=== PATIENT | female | born 1975 | race Caucasian/White ===

== ENCOUNTER 2017-07-18 00:55 | Inpatient (IN) | payer OTHER ==
--- NOTE | 2017-07-18 01:38 | PDOC ---
History of Present Illness - General History Source: Patient Exam Limitations: No Limitations - History of Present Illness Initial Comments: 07/18/17 01:44 The patient is a 42 year old female, with no significant past medical history who presents to the emergency department with worsening abdominal pain since this afternoon. Patient reports last meal this afternoon. Patient returned home and reported sudden onset of pain. Patient reports associated nausea, vomiting , dizziness however denies any fever or chills. Patient denies any diarrhea, constipation, melena, hematochezia. LMP: 2 weeks ago. <Jeannine Machado - Last Filed: 07/18/17 01:44> <Franc Godoy - Last Filed: 07/18/17 04:08> - General Chief Complaint: Pain Stated Complaint: VOMITING,DIZZINESS, PAIN Time Seen by Provider: 07/18/17 01:36 Past History <Jeannine Machado - Last Filed: 07/18/17 01:44> - Suicide/Smoking/Psychosocial Hx Smoking History: Never smoked Have you smoked in the past 12 months: No Information on smoking cessation initiated: No Hx Alcohol Use: No Drug/Substance Use Hx: No Substance Use Type: None <Franc Godoy - Last Filed: 07/18/17 04:08> - Past Medical History Allergies/Adverse Reactions: Allergies Allergy/AdvReac Type Severity Reaction Status Date / Time No Known Allergies Allergy Verified 07/18/17 01:25 Home Medications: Ambulatory Orders NK [No Known Home Medication] 07/18/17 Review of Systems - Review of Systems Able to Perform ROS?: Yes Comments:: 07/18/17 01:44 CONSTITUTIONAL: Absent: fever, chills, diaphoresis, generalized weakness, malaise, loss of appetite HEENT: Absent: rhinorrhea, nasal congestion, throat pain, throat swelling, difficulty swallowing, mouth swelling, ear pain, eye pain, visual Changes CARDIOVASCULAR: Absent: chest pain, syncope, palpitations, irregular heart rate, lightheadedness , peripheral edema RESPIRATORY: Absent: cough, shortness of breath, dyspnea with exertion, orthopnea, wheezing, stridor, hemoptysis GASTROINTESTINAL: +abdominal pain, abdominal distension, nausea, vomiting Absent: diarrhea, constipation, melena, hematochezia GENITOURINARY: Absent: dysuria, frequency, urgency, hesitancy, hematuria, flank pain, genital pain MUSCULOSKELETAL: Absent: myalgia, arthralgia, joint swelling SKIN: Absent: rash, itching, pallor HEMATOLOGIC/IMMUNOLOGIC: Absent: easy bleeding, easy bruising, lymphadenopathy, frequent infections ENDOCRINE: Absent: unexplained weight gain, unexplained weight loss, heat intolerance, cold intolerance NEUROLOGIC: Absent: headache, focal weakness or paresthesias, dizziness, unsteady gait, seizure, mental status changes, bladder or bowel incontinence PSYCHIATRIC: Absent: anxiety, depression, suicidal or homicidal ideation, hallucinations. <Jeannine Machado - Last Filed: 07/18/17 01:44> *Physical Exam - Vital Signs Last Vital Signs Temp Pulse Resp BP Pulse Ox 98.7 F 71 18 135/73 100 07/18/17 01:24 07/18/17 01:24 07/18/17 01:24 07/18/17 01:24 07/18/17 01:24 - Physical Exam Comments: 07/18/17 01:44 GENERAL: Well developed, well nourished. Awake and alert. In no acute distress. HEENT: Normocephalic, atraumatic. PERRLA, EOMI. No conjunctival pallor. Sclerae are non -icteric. Moist mucous membranes. Oropharynx is clear. NECK: Supple. Full ROM. No JVD. Carotid pulses 2+ and symmetric, without bruits. No thyromegaly. No lymphadenopathy. CARDIOVASCULAR: Regular rate and rhythm. No murmurs, rubs, or gallops. Distal pulses are 2+ and symmetric. PULMONARY: No evidence of respiratory distress. Lungs clear to auscultation bilaterally. No wheezing, rales or rhonchi. ABDOMINAL: +RUQ tenderness. + [place] sign. Non-distended. No rebound or guarding. No organomegaly. Normoactive bowel sounds. MUSCULOSKELETAL Normal range of motion at all joints. No bony deformities or tenderness. No CVA tenderness. EXTREMITIES: No cyanosis. No clubbing. No edema. No calf tenderness. SKIN: Warm and dry. Normal capillary refill. No rashes. No jaundice. NEUROLOGICAL: Alert, awake, appropriate. Cranial nerves 2-12 intact. No deficits to light touch and temperature in face, upper extremities and lower extremities. No motor deficits in the in face, upper extremities and lower extremities. Normoreflexic in the upper and lower extremities. Normal speech. Toes are downgoing bilaterally. Gait is normal without ataxia. PSYCHIATRIC: Cooperative. Good eye contact. Appropriate mood and affect. <Jeannine Machado - Last Filed: 07/18/17 01:44> - Vital Signs Last Vital Signs Temp Pulse Resp BP Pulse Ox 98.7 F 71 18 135/73 100 07/18/17 01:24 07/18/17 01:24 07/18/17 01:24 07/18/17 01:24 07/18/17 01:24 <Franc Godoy - Last Filed: 07/18/17 04:08> ED Treatment Course - LABORATORY CBC & Chemistry Diagram: 07/18/17 02:41 07/18/17 02:41 <Franc Godoy - Last Filed: 07/18/17 04:08> Medical Decision Making - Medical Decision Making 07/18/17 04:08 Dr. Godoy: The scribe's documentation has been prepared under my direction and personally reviewed by me in its entirery. I confirm that the note above accurately reflects all work, treatment, procedures, and medical decision making performed by me. <Franc Godoy - Last Filed: 07/18/17 04:08> *DC/Admit/Observation/Transfer - Attestations Scribe Attestion: 07/18/17 01:44 Documentation prepared by Jeannine Machado, acting as biomedical field service engineer for Franc Godoy DO. <Jeannine Machado - Last Filed: 07/18/17 01:44> - Discharge Dispostion Admit: Yes <Franc Godoy - Last Filed: 07/18/17 04:08> Diagnosis at time of Disposition: Cholelithiasis Qualifiers: Cholelithiasis location: gallbladder Cholecystitis presence: with cholecystitis Cholecystitis acuity: acute Biliary obstruction: without biliary obstruction Qualified Code(s): K80.00 - Calculus of gallbladder with acute cholecystitis without obstruction - Referrals Referrals: STAFF,NOT ON [Primary Care Provider] -
[2017-07-18] MEDS ORDERED: morphine CARPU-JECT 2 MG/1 ML DISP.SYRIN IVPUSH ONE (01:39)
[2017-07-18] MEDS ORDERED: ONDANSETRON 4 MG/2 ML VIAL IVPUSH STA (01:39)
[2017-07-18] MEDS ORDERED: SODIUM CHLORIDE 1,000 ML IV STA (01:40)
[2017-07-18] MEDS ORDERED: morphine CARPU-JECT 10 MG/1 ML DISP.SYRIN ONE (02:17)
[2017-07-18] MEDS ORDERED: ONDANSETRON 4 MG/2 ML VIAL ONE (02:17)
[2017-07-18 02:49] LABS: BASOPHIL 0.4 % (0-2.0); MCH 27.2 pg (25.7-33.7); MCHC 33.4 g/dl (32.0-36.0); MEAN CELL VOLUME 81.4 fl (80-96); MEAN PLT VOLUME 9.5 fl (7.5-11.1); NEUTROPHILS 83.8 % (42.8-82.8); PLATELET COUNT 230 K/MM3 (134-434); RDW 13.3 % (11.6-15.6); WHITE BLOOD COUNT 13.6 K/mm3 (4.0-10.0)
[2017-07-18 02:50] LABS: URINE APPEARANCE SLCLOUDY; URINE BILIRUBIN NEGATIVE (NEGATIVE); URINE BLOOD NEGATIVE (NEGATIVE); URINE COLOR LTYELLOW; URINE GLUCOSE (UA) NEGATIVE (NEGATIVE); URINE KETONE 1+ (NEGATIVE); URINE NITRITE NEGATIVE (NEGATIVE); URINE PROTEIN NEGATIVE (NEGATIVE); URINE UROBILINOGEN NEGATIVE mg/dL (0.2-1.0)
[2017-07-18] MEDS: SODIUM CHLORIDE 1,000 ML IV SCH ×2 (03:00→06:26)
[2017-07-18 03:27] LABS: INR 1.05 (0.82-1.09); PROTHROMBIN TIME (PATIENT) 11.9 SEC (9.98-11.88)
[2017-07-18 03:41] LABS: MAGNESIUM 2.3 mg/dL (1.8-2.4)
[2017-07-18 03:50] LABS: ALBUMIN 4.2 g/dl (3.4-5.0); ALK PHOS 97 U/L (45-117); ANION GAP 11 (8-16); BILIRUBIN,TOTAL 0.5 mg/dL (0.2-1.0); CALCIUM 8.8 mg/dL (8.5-10.1); CO2 24 mmol/L (21-32); CREATININE 0.7 mg/dL (0.55-1.02); GLUCOSE,RANDOM 145 mg/dL (74-106); SGOT/AST 32 U/L (15-37); SGPT/ALT 50 U/L (12-78); TOT PROT 8.4 g/dl (6.4-8.2)
--- NOTE | 2017-07-18 04:47 | HP ---
CHIEF COMPLAINT: "my stomach hurts" PCP: ronit isbell remember name HISTORY OF PRESENT ILLNESS: This is a 42 yo F, with no PMH who presents due to worsening abdominal pain since this 11pm. Pain is epigastric radiating to R side and R flank. It started after a meal of pasta and has been constant 04/02 until given analgesia in ED. It was associated with nausea, several episodes on NBNB vomiting and chills. She has had pain like this before after meals but not as severe. She denies fever, diarrhea, constipation, melena, hematochezia, cp, sob, cough. ER course was notable for: (1)labs (2)ekg, cxr, abd us (3)IVF, morphine, dilaudid, zofran. Recent Travel: denies PAST MEDICAL HISTORY: as above PAST SURGICAL HISTORY: c section x 2 Social History: lives at [facility] with , kids Smoking: denies Alcohol:denies Drugs: denies Family History: unremarkable Allergies No Known Allergies Allergy (Verified 07/18/17 01:25) HOME MEDICATIONS: Home Medications Medication Instructions Recorded NK [No Known Home Medication] 07/18/17 REVIEW OF SYSTEMS CONSTITUTIONAL: Absent: fever, diaphoresis, generalized weakness HEENT: Absent: rhinorrhea, nasal congestion, throat pain, CARDIOVASCULAR: Absent: chest pain, syncope, palpitations, irregular heart rate, lightheadedness , peripheral edema RESPIRATORY: Absent: cough, shortness of breath, dyspnea with exertion, orthopnea, wheezing, stridor, hemoptysis GASTROINTESTINAL: Absent: diarrhea, constipation, melena, hematochezia GENITOURINARY: Absent: dysuria MUSCULOSKELETAL: Absent: myalgia, arthralgia SKIN: Absent: rash, itching, pallor HEMATOLOGIC/IMMUNOLOGIC: Absent: easy bleeding, easy bruising, lymphadenopathy, frequent infections ENDOCRINE: Absent: unexplained weight gain, unexplained weight loss NEUROLOGIC: Absent: headache, focal weakness or paresthesias PSYCHIATRIC: Absent: anxiety, depression PHYSICAL EXAMINATION Vital Signs - 24 hr 07/18/17 07/18/17 01:24 04:18 Temperature 98.7 F 98.6 F Pulse Rate 71 Pulse Rate [ 70 Apical] Respiratory 18 18 Rate Blood Pressure 135/73 Blood Pressure 130/69 [Left Arm] O2 Sat by Pulse 100 99 Oximetry (%) GENERAL: Awake, alert, and fully oriented, in no acute distress. HEAD: Normal with no signs of trauma. EYES: Pupils equal, round and reactive to light, extraocular movements intact, sclera anicteric, conjunctiva clear. No lid lag. EARS, NOSE, THROAT: Moist mucous membranes. NECK: supple LUNGS: Breath sounds equal, clear to auscultation bilaterally. HEART: Regular rate and rhythm, normal S1 and S2 ABDOMEN: Soft, milldy tender RUQ, + murphys, not distended, slightly diffusely reduced bowel sounds, no guarding, no rebound, no masses. No hepatomegaly or splenomegaly. MUSCULOSKELETAL: No CVA tenderness. UPPER EXTREMITIES: 2+ pulses, warm, well-perfused. No peripheral edema. LOWER EXTREMITIES: 2+ pulses, warm, well-perfused. No calf tenderness. No peripheral edema. NEUROLOGICAL: Cranial nerves II-XII grossly intact. Normal speech. PSYCHIATRIC: Cooperative. Good eye contact. Appropriate mood and affect. SKIN: Warm, dry Laboratory Results - last 24 hr 07/18/17 07/18/17 07/18/17 02:41 02:41 02:41 WBC 13.6 H RBC 4.90 Hgb 13.3 Hct 39.9 MCV 81.4 MCH 27.2 MCHC 33.4 RDW 13.3 Plt Count 230 MPV 9.5 Neutrophils % 83.8 H Lymphocytes % 13.3 Monocytes % 2.5 L Eosinophils % 0.0 Basophils % 0.4 PT with INR 11.90 H INR 1.05 Sodium Potassium Chloride Carbon Dioxide Anion Gap BUN Creatinine Creat Clearance w eGFR Random Glucose Calcium Magnesium Total Bilirubin AST ALT Alkaline Phosphatase Total Protein Albumin Lipase Serum , Qual Negative Urine Color Urine Appearance Urine pH Urine Protein Urine Glucose (UA) Urine Ketones Urine Blood Urine Nitrite Urine Bilirubin Urine Urobilinogen 07/18/17 07/18/17 02:41 02:41 WBC RBC Hgb Hct MCV MCH MCHC RDW Plt Count MPV Neutrophils % Lymphocytes % Monocytes % Eosinophils % Basophils % PT with INR INR Sodium 138 Potassium 4.9 Chloride 103 Carbon Dioxide 24 Anion Gap 11 BUN 10 Creatinine 0.7 Creat Clearance w eGFR > 60 Random Glucose 145 H Calcium 8.8 Magnesium 2.3 Total Bilirubin 0.5 AST 32 ALT 50 Alkaline Phosphatase 97 Total Protein 8.4 H Albumin 4.2 Lipase 187 Serum , Qual Urine Color Ltyellow Urine Appearance Slcloudy Urine pH 7.0 Urine Protein Negative Urine Glucose (UA) Negative Urine Ketones 1+ H Urine Blood Negative Urine Nitrite Negative Urine Bilirubin Negative Urine Urobilinogen Negative ASSESSMENT/PLAN: This is a 42 yo F, with no PMH who presents due to worsening abdominal pain since this 11pm. Acute cholecystitis in setting of cholelithiasis -US sugestive of cholecystitis; cholelithiasis, mild duct dilitation -normal LFTs and bili -low suspicion of choledocholithiasis -mild leukocytosis with left shift due to inflammatory process -per guidelines, should have cholecystectomy during this admission -start IV hydration with LR, unasyn 3 q6h -IV tylenol. morphine lyles control -Surgery consult -NPO -type/screen FEN LR @ 125 lytes stable npo scd's, ppi Dispo: adm med anh Problem List - Problem (1) Cholelithiasis Code(s): K80.20 - CALCULUS OF GALLBLADDER W/O CHOLECYSTITIS W/O OBSTRUCTION Qualifiers: Cholelithiasis location: gallbladder Cholecystitis presence: with cholecystitis Cholecystitis acuity: acute Biliary obstruction: without biliary obstruction Qualified Code(s): K80.00 - Calculus of gallbladder with acute cholecystitis without obstruction; K80.00 - Calculus of gallbladder with acute cholecystitis without obstruction (2) Acute cholecystitis Code(s): K81.0 - ACUTE CHOLECYSTITIS Visit type - Emergency Visit Emergency Visit: Yes Care time: The patient presented to the Emergency Department on the above date and was hospitalized for further evaluation of their emergent condition. - New Patient This patient is new to me today: Yes Date on this admission: 07/18/17 - Critical Care Critical Care patient: No
--- NOTE | 2017-07-18 05:00 | PN ---
Teaching Attending Note Name of Resident: Abilio Hough ATTENDING PHYSICIAN STATEMENT I saw and evaluated the patient. I reviewed the resident's note and discussed the case with the resident. I agree with the resident's findings and plan as documented. SUBJECTIVE: 42 yo F with no pmhx who presents with abdominal pain, nausea and vomiting, No current chest pain or pressure. OBJECTIVE: Physical: VS: Vital Signs Period Temp Pulse Resp BP Sys/[place] Pulse Ox Last 24 Hr 98.6 F-98.7 F 70-71 18-18 130-135/69-73 99-100 GEN: NAD, resting in bed HEENT: NCAT, PERRL, Throat without erythema or exudates CARD: RRR S1, S2 RESP: CTAB ABD: BSX4, + TTP Right upper quadrant EXT: - C/C/E CBCD WBC 13.6 K/mm3 (4.0-10.0) H 07/18/17 02:41 RBC 4.90 M/mm3 (3.60-5.2) 07/18/17 02:41 Hgb 13.3 GM/dL (10.7-15.3) 07/18/17 02:41 Hct 39.9 % (32.4-45.2) 07/18/17 02:41 MCV 81.4 fl (80-96) 07/18/17 02:41 MCHC 33.4 g/dl (32.0-36.0) 07/18/17 02:41 RDW 13.3 % (11.6-15.6) 07/18/17 02:41 Plt Count 230 K/MM3 (134-434) 07/18/17 02:41 MPV 9.5 fl (7.5-11.1) 07/18/17 02:41 CMP Sodium 138 mmol/L (136-145) 07/18/17 02:41 Potassium 4.9 mmol/L (3.5-5.1) 07/18/17 02:41 Chloride 103 mmol/L (98-107) 07/18/17 02:41 Carbon Dioxide 24 mmol/L (21-32) 07/18/17 02:41 Anion Gap 11 (8-16) 07/18/17 02:41 BUN 10 mg/dL (7-18) 07/18/17 02:41 Creatinine 0.7 mg/dL (0.55-1.02) 07/18/17 02:41 Creat Clearance w eGFR > 60 (>60) 07/18/17 02:41 Random Glucose 145 mg/dL (74-106) H 07/18/17 02:41 Calcium 8.8 mg/dL (8.5-10.1) 07/18/17 02:41 Total Bilirubin 0.5 mg/dL (0.2-1.0) 07/18/17 02:41 AST 32 U/L (15-37) 07/18/17 02:41 ALT 50 U/L (12-78) 07/18/17 02:41 Alkaline Phosphatase 97 U/L (45-117) 07/18/17 02:41 Total Protein 8.4 g/dl (6.4-8.2) H 07/18/17 02:41 Albumin 4.2 g/dl (3.4-5.0) 07/18/17 02:41 ABD US: Choleylithiasis with Acute Choleycystitis ASSESSMENT AND PLAN: 42 yo F with no pmhx who presents with abdominal pain, found to have acute choleycystitis 1.) Acute choleycystitis - NPO - IVF - Levauin and Flagyl - Type and Screen - Sx. Consult 2.) Dvt PPX - Low Risk - SCDs Rest as per resident note
[2017-07-18] MEDS ORDERED: morphine CARPU-JECT 2 MG/1 ML DISP.SYRIN IVPUSH PRN (05:21)
[2017-07-18] MEDS ORDERED: ACETAMINOPHEN 1000 MG/100 ML VIAL (NON FORMULARY) IVPB PRN (05:25)
[2017-07-18] MEDS ORDERED: AMPICILLIN NA/SULBACTAM NA 3 GM in SODIUM CHLORIDE 100 ML IVPB ONE (05:25)
[2017-07-18] MEDS ORDERED: LACTATED RINGERS SOLUTION 1,000 ML IV SCH (05:30)
[2017-07-18] MEDS ORDERED: ONDANSETRON 4 MG/2 ML VIAL IVPUSH PRN ×2 (05:40→05:46)
[2017-07-18] MEDS ORDERED: LEVOFLOXACIN 500 MG IVPB 100 ML IVPB ONE (05:43)
[2017-07-18] MEDS ORDERED: LEVOFLOXACIN 750 MG IVPB 150 ML IVPB ONE ×3 (05:45→06:15)
[2017-07-18] MEDS ORDERED: AMPICILLIN NA/SULBACTAM NA 3 GM in SODIUM CHLORIDE 100 ML IVPB SCH (05:45)
[2017-07-18] MEDS ORDERED: METRONIDAZOLE 500 MG PREMIXED 100 ML IVPB ONE ×3 (06:05→11:06)
[2017-07-18] MEDS ORDERED: PANTOPRAZOLE SODIUM 100 ML IVPB ONE (06:05)
[2017-07-18] MEDS: METRONIDAZOLE 500 MG PREMIXED 100 ML IVPB SCH ×3 (06:12→17:17)
[2017-07-18] MEDS ORDERED: PANTOPRAZOLE SODIUM 40 MG VIAL ONE (06:20)
--- NOTE | 2017-07-18 07:29 | HP ---
CHIEF COMPLAINT: abdominal pain PCP: HISTORY OF PRESENT ILLNESS: 42F w/ no significant PMH presenting with abdominal pain for 1 day. The pain started after eating salad, is constant, 10/10, worst in the epigastric area and radiating to the RUQ, right flank, and right shoulder. It is accompanied by 4 episodes of NBNB emesis. Pt denies having an appetite. She also denies SOB, chest pain, diarrhea, constipation, and any urinary sxs. Of note, pt has had similar episodes like this before, but none of them were as painful. ER course was notable for: (1) leukocytosis (2) RUQ US findings (3) Recent Travel: PAST MEDICAL HISTORY: none PAST SURGICAL HISTORY: C-sections x 3 Social History: Smoking: none Alcohol: none Drugs: none Family History: Allergies No Known Allergies Allergy (Verified 07/18/17 01:25) HOME MEDICATIONS: Home Medications Medication Instructions Recorded NK [No Known Home Medication] 07/18/17 REVIEW OF SYSTEMS CONSTITUTIONAL: Absent: fever, chills, diaphoresis, generalized weakness, malaise, weight change Present: loss of appetite HEENT: Absent: rhinorrhea, nasal congestion, throat pain, throat swelling, difficulty swallowing, mouth swelling, ear pain, eye pain, visual changes CARDIOVASCULAR: Absent: chest pain, syncope, palpitations, irregular heart rate, lightheadedness , peripheral edema RESPIRATORY: Absent: cough, shortness of breath, dyspnea with exertion, orthopnea, wheezing, stridor, hemoptysis GASTROINTESTINAL: Absent: diarrhea, constipation, melena, hematochezia Present: abdominal pain, nausea, vomiting GENITOURINARY: Absent: dysuria, frequency, urgency, hesitancy, hematuria, flank pain, genital pain MUSCULOSKELETAL: Absent: myalgia, arthralgia, joint swelling, back pain, neck pain SKIN: Absent: rash, itching, pallor HEMATOLOGIC/IMMUNOLOGIC: Absent: easy bleeding, easy bruising, lymphadenopathy, frequent infections ENDOCRINE: Absent: unexplained weight gain, unexplained weight loss, heat intolerance, cold intolerance NEUROLOGIC: Absent: headache, focal weakness or paresthesias, dizziness, unsteady gait, seizure, mental status changes, bladder or bowel incontinence PSYCHIATRIC: Absent: anxiety, depression, suicidal or homicidal ideation, hallucinations. PHYSICAL EXAMINATION Vital Signs - 24 hr 07/18/17 04:18 Temperature 98.6 F Pulse Rate [ 70 Apical] Respiratory 18 Rate Blood Pressure 130/69 [Left Arm] O2 Sat by Pulse 99 Oximetry (%) GENERAL: Awake, alert, and fully oriented, in no acute distress. HEAD: Normal with no signs of trauma. EYES: Pupils equal, round and reactive to light, extraocular movements intact, sclera anicteric, conjunctiva clear. No lid lag. EARS, NOSE, THROAT: Ears normal, nares patent, oropharynx clear without exudates. Moist mucous membranes. NECK: Normal range of motion, supple without lymphadenopathy, JVD, or masses. LUNGS: Breath sounds equal, clear to auscultation bilaterally. No wheezes, and no crackles. No accessory muscle use. HEART: Regular rate and rhythm, normal S1 and S2 without murmur, rub or gallop. ABDOMEN: normoactive BS, soft, mildly tender in RUQ and on inspiration, ND, no peritoneal signs MUSCULOSKELETAL: Normal range of motion at all joints. No bony deformities or tenderness. No CVA tenderness. UPPER EXTREMITIES: 2+ pulses, warm, well-perfused. No cyanosis. No clubbing. No peripheral edema. LOWER EXTREMITIES: 2+ pulses, warm, well-perfused. No calf tenderness. No peripheral edema. NEUROLOGICAL: Cranial nerves II-XII intact. Normal speech. Normal gait. PSYCHIATRIC: Cooperative. Good eye contact. Appropriate mood and affect. SKIN: Warm, dry, normal turgor, no rashes or lesions noted, normal capillary refill. ASSESSMENT/PLAN: 42F w/ no significant PMH presenting with acute abdominal pain, found to have a leukocytosis and RUQ US findings consistent with acute cholecystitis, admitted for acute cholecystitis. #acute cholecystitis -NS @ 100cc/hr -flagyl and levaquin -morphine 2mg q4h PRN -surgery on board- Dr. Griffiths -NPO -zofran for nausea #FEN/ppx -NS @ 100cc/hr -electrolytes wnl -NPO -protonix 20 -SCDs -Abilio Hough MD PGY1 Visit type - Emergency Visit Emergency Visit: Yes ED Registration Date: 07/18/17 Care time: The patient presented to the Emergency Department on the above date and was hospitalized for further evaluation of their emergent condition. - New Patient This patient is new to me today: Yes Date on this admission: 07/18/17 - Critical Care Critical Care patient: No
[2017-07-18 08:44] LABS: BASOPHIL 0.8 % (0-2.0); MCH 26.7 pg (25.7-33.7); MCHC 32.5 g/dl (32.0-36.0); MEAN CELL VOLUME 81.9 fl (80-96); MEAN PLT VOLUME 8.9 fl (7.5-11.1); NEUTROPHILS 75.3 % (42.8-82.8); PLATELET COUNT 224 K/MM3 (134-434); RDW 13.6 % (11.6-15.6); WHITE BLOOD COUNT 13.2 K/mm3 (4.0-10.0)
[2017-07-18 08:58] LABS: URINE LEUK ESTERASE Negative (NEGATIVE)
[2017-07-18 09:08] LABS: ALBUMIN 3.2 g/dl (3.4-5.0); ALK PHOS 86 U/L (45-117); ANION GAP 6 (8-16); BILIRUBIN,TOTAL 0.4 mg/dL (0.2-1.0); CALCIUM 7.4 mg/dL (8.5-10.1); CO2 24 mmol/L (21-32); CREATININE 0.7 mg/dL (0.55-1.02); GLUCOSE,RANDOM 125 mg/dL (74-106); PHOSPHOROUS 2.6 mg/dL (2.5-4.9); SGOT/AST 37 U/L (15-37); SGPT/ALT 46 U/L (12-78); TOT PROT 6.8 g/dl (6.4-8.2)
[2017-07-18] MEDS ORDERED: PANTOPRAZOLE SODIUM 40 MG VIAL IVPUSH SCH (10:00)
[2017-07-18] MEDS ORDERED: CEFTRIAXONE 1 GM in DEXTROSE 5%-WATER - 50 ML IVPB SCH (10:00)
[2017-07-18] MEDS: PANTOPRAZOLE SODIUM 40 MG VIAL IVPUSH SCH (11:10)
--- NOTE | 2017-07-18 13:05 | EKG ---
Test Reason : Blood Pressure : / mmHG Vent. Rate : 069 BPM Atrial Rate : 069 BPM P-R Int : 142 ms QRS Dur : 072 ms QT Int : 422 ms P-R-T Axes : 042 036 041 degrees QTc Int : 452 ms NORMAL SINUS RHYTHM NORMAL ECG NO PREVIOUS ECGS AVAILABLE Confirmed by MANOJ LINARES, WINNIE ([id number]) on 07/18/2017 1:05:18 PM Referred By: Confirmed By:WINNIE ARANDA MD
[2017-07-18 16:13] VITALS: BMI 32.2
--- NOTE | 2017-07-18 23:56 | CONSULT ---
Consult - text type - Consultation Consultation Note: Chart reviewed. Leukocytosis with RUQ pain, N/V at home. US noted with gallstones and dilated CBD. MRCP was ordered and done tonight. Spoke with radiologist - no intraductal stones, but gallstones, thickened gallbladder wall and a little pericholecystic fluid present with CBD 7-8mm. Pt is on antibiotics for cholecystitis. Attempted to see patient - she is asleep. Will see in am. Full consult to follow. Jayshree LINARES
[2017-07-19] MEDS: METRONIDAZOLE 500 MG PREMIXED 100 ML IVPB SCH ×3 (01:46→17:49)
[2017-07-19 07:36] LABS: BASOPHIL 0.5 % (0-2.0); EOSINOPHIL 0.8 % (0-4.5); MCH 27.8 pg (25.7-33.7); MCHC 33.9 g/dl (32.0-36.0); MEAN PLT VOLUME 9.7 fl (7.5-11.1); NEUTROPHILS 52.4 % (42.8-82.8); PLATELET COUNT 196 K/MM3 (134-434); RDW 13.8 % (11.6-15.6); WHITE BLOOD COUNT 8.4 K/mm3 (4.0-10.0)
[2017-07-19 08:04] LABS: CALCIUM 7.5 mg/dL (8.5-10.1)
[2017-07-19 08:10] LABS: ALBUMIN 2.9 g/dl (3.4-5.0); ALK PHOS 74 U/L (45-117); ANION GAP 8 (8-16); BILIRUBIN,TOTAL 0.7 mg/dL (0.2-1.0); CO2 25 mmol/L (21-32); CREATININE 0.6 mg/dL (0.55-1.02); GLUCOSE,RANDOM 69 mg/dL (74-106); SGOT/AST 24 U/L (15-37); SGPT/ALT 40 U/L (12-78); TOT PROT 6.1 g/dl (6.4-8.2)
[2017-07-19] MEDS: PANTOPRAZOLE SODIUM 40 MG VIAL IVPUSH SCH (10:50)
--- NOTE | 2017-07-19 11:43 | CONSULT ---
Consult Consult Specialty:: General Surgery Referred by:: Hospitalist Service Reason for Consultation:: cholecystitis - History of Present Illness Chief Complaint: epigastric/RUQ pain History of Present Illness: 42yo Lashawn F with h/o cholelithiasis has had symptoms of epigastric pain dating back 20 years since after her first child. In [place], she was told her symptoms were gastritis. In 2013, she was told she had gallstones and referred to a surgeon for cholecystectomy, but she had insurance issues and did not keep the appointment. She has continued to have intermittent epigastric pain radiating to RUQ and back associated with fatty meals. This time, she had sudden onset of pain associated with nausea, vomiting and chills after a meal of pasta with turkey and a greasy sauce, then a small amount of salad with lemon and olive oil the night before admission. The pain had not been this severe before. No constipation or diarrhea. In the ER, she was afebrile, wbc 13.6, LFTs and lipase normal. US was done showing cholelithiasis and cbd somewhat dilated at 7mm, but no other signs of cholecystitis. MRCP was done showing multiple gallstones, confirming dilation of cbd/chd at 7 and 8 mm without intraductal stones, as well as slightly thickened gallbladder wall and small pericholecystic fluid. She has been NPO on IVF, receiving IV antibiotics. Her pain has improved significantly, and she now has mild epigastric and RUQ pain with deep inspiration mainly, as well as right shoulder pain with deep breathing. WBC has decreased some. Surgery is consulted for cholecystitis. - History Source History Provided By: Patient Limitations to Obtaining History: Language Barrier ([place] Islander translation facilitated by Megan Rodriguez at bedside) - Past Medical History Gastrointestinal: Yes: Gastritis (in [place], she was told her epigastric pain was gastritis) Hepatobiliary: Yes: Cholelithiasis ...LMP Comment: 2 weeks ago ...: No ...: 3 ...Para: 3 - Past Surgical History Past Surgical History: Yes: (x3) - Alcohol/Substance Use Hx Alcohol Use: No History of Substance Use: reports: None - Smoking History Smoking history: Never smoked Have you smoked in the past 12 months: No Home Medications - Allergies Allergies/Adverse Reactions: Allergies Allergy/AdvReac Type Severity Reaction Status Date / Time No Known Allergies Allergy Verified 07/18/17 01:25 - Home Medications Home Medications: Ambulatory Orders NK [No Known Home Medication] 07/18/17 Family Disease History - Family Disease History Family History: Unremarkable (some other family members had gallstones and cholecystectomy) Review of Systems - Review of Systems Constitutional: denies: Chills, Fever Eyes: reports: Blurred Vision ("needs glasses but doesn't have them"). denies: Recent Change in Vision HENT: denies: Difficult Swallowing, Hearing Loss, Nasal Congestion, Throat Pain Cardiovascular: denies: Chest Pain, Palpitations Respiratory: denies: Cough, SOB Gastrointestinal: reports: Abdominal Pain (with hpi). denies: Constipation, Diarrhea Genitourinary: denies: Burning, Dysuria Musculoskeletal: denies: Back Pain, Joint Pain, Muscle Pain Integumentary: denies: Change in Color, Rash Neurological: reports: Dizziness (at times, has been worked up and found nothing ). denies: Headache Psychiatric: denies: Anxiety, Depression Physical Exam Vital Signs: Vital Signs Temperature 98.4 F 07/19/17 09:00 Pulse Rate 58 L 07/19/17 09:00 Respiratory Rate 18 07/19/17 09:00 Blood Pressure 104/56 07/19/17 09:00 O2 Sat by Pulse Oximetry (%) 99 07/18/17 14:20 Constitutional: Yes: Well Nourished, No Distress, Calm Eyes: Yes: Conjunctiva Clear, EOM Intact. No: Sclera Icterus HENT: Yes: Atraumatic, Normocephalic Neck: Yes: Supple, Trachea Midline Cardiovascular: Yes: Regular Rate and Rhythm. No: Murmur Respiratory: Yes: Regular, CTA Bilaterally Gastrointestinal: Yes: Normal Bowel Sounds, Soft, Abdomen, Obese (mildly), Tenderness (minimal epigastric and RUQ to deep palpation and on inspiration only ). No: Distention ...Rectal Exam: Yes: Deferred Renal/: No: CVA Tenderness - Left, CVA Tenderness - Right Musculoskeletal: No: Joint Stiffness, Joint Swelling Extremities: No: Cool, Cyanosis Edema: No Peripheral Pulses WNL: Yes Integumentary: No: Jaundice, Rash Neurological: Yes: Alert, Oriented Psychiatric: Yes: Alert, Oriented Labs: CBC, BMP 07/19/17 06:00 07/19/17 06:00 CMP Sodium 140 mmol/L (136-145) 07/19/17 06:00 Potassium 3.5 mmol/L (3.5-5.1) 07/19/17 06:00 Chloride 107 mmol/L (98-107) 07/19/17 06:00 Carbon Dioxide 25 mmol/L (21-32) 07/19/17 06:00 Anion Gap 8 (8-16) 07/19/17 06:00 BUN 6 mg/dL (7-18) L 07/19/17 06:00 Creatinine 0.6 mg/dL (0.55-1.02) 07/19/17 06:00 Creat Clearance w eGFR > 60 (>60) 07/19/17 06:00 Random Glucose 69 mg/dL (74-106) L D 07/19/17 06:00 Calcium 7.5 mg/dL (8.5-10.1) L 07/19/17 06:00 Phosphorus 2.6 mg/dL (2.5-4.9) 07/18/17 08:30 Magnesium 2.0 mg/dL (1.8-2.4) 07/18/17 08:30 Total Bilirubin 0.7 mg/dL (0.2-1.0) D 07/19/17 06:00 AST 24 U/L (15-37) D 07/19/17 06:00 ALT 40 U/L (12-78) 07/19/17 06:00 Alkaline Phosphatase 74 U/L (45-117) 07/19/17 06:00 Total Protein 6.1 g/dl (6.4-8.2) L 07/19/17 06:00 Albumin 2.9 g/dl (3.4-5.0) L 07/19/17 06:00 Lipase 127 U/L (73-393) 07/19/17 06:00 Serum , Qual Negative 07/18/17 02:41 Imaging - Results Ultrasound: Report Reviewed, Image Reviewed MRI: Report Reviewed, Image Reviewed Problem List - Problems (1) Calculus of gallbladder with acute and chronic cholecystitis without obstruction Assessment/Plan: admitted to medicine NPO/IVF IV antibiotics MRCP done pain improved Discussed with patient risks, benefits and alternatives of laparoscopic possible open cholecystectomy, including but not limited to bleeding, infection , injury to adjacent structures, bile leak or ductal injury, intraabdominal abscess, hernia, need for further procedures. Patient desires to proceed with operation. Informed consent signed for same. Plan OR 12 noon tomorrow Anticipate resuming po postop Will be able to go home when ambulating, voiding, tolerating po, pain managed with po meds Code(s): K80.12 - CALCULUS OF GB W ACUTE AND CHRONIC CHOLECYST W/O OBSTRUCTION
--- NOTE | 2017-07-19 12:35 | PN ---
Physical Exam: SUBJECTIVE: Patient seen and examined. She says she the pain has improved from yesterday, it hurts a little when she takes a deep breath of moves behind her r shoulder and back. OBJECTIVE: Vital Signs Period Temp Pulse Resp BP Sys/Crowell Pulse Ox Last 24 Hr 98.4 F-99 F 56-66 16-18 100-105/48-64 99 PE Neuro: alert, awake, cn 2-12intact Heent: dry mm Pulm: CTAB CV: s1 s2 rrr no mrg Abd: RUQ tenderness mildly referring to R shoulder abd soft, no distention Ext: no le edema Laboratory Results - last 24 hr 07/19/17 07/19/17 06:00 06:00 WBC 8.4 D RBC 4.12 Hgb 11.4 Hct 33.8 MCV 82.0 MCH 27.8 MCHC 33.9 RDW 13.8 Plt Count 196 MPV 9.7 Neutrophils % 52.4 D Lymphocytes % 40.3 H D Monocytes % 6.0 Eosinophils % 0.8 D Basophils % 0.5 Sodium 140 Potassium 3.5 Chloride 107 Carbon Dioxide 25 Anion Gap 8 BUN 6 L Creatinine 0.6 Creat Clearance w eGFR > 60 Random Glucose 69 L D Calcium 7.5 L Total Bilirubin 0.7 D AST 24 D ALT 40 Alkaline Phosphatase 74 Total Protein 6.1 L Albumin 2.9 L Lipase 127 Active Medications Generic Name Dose Route Start Last Admin Trade Name Freq PRN Reason Stop Dose Admin Sodium Chloride 1,000 mls @ 100 mls/hr 07/18/17 05:45 07/18/17 06:26 Normal Saline - IV 100 mls/hr ASDIR PAOLO Administration Metronidazole 100 mls @ 100 mls/hr 07/18/17 05:44 07/19/17 10:50 Flagyl 500mg Premixed Ivpb - IVPB 100 mls/hr Q8H-IV PAOLO Administration Morphine Sulfate 2 mg 07/18/17 05:21 Morphine Injection - IVPUSH Q4H PRN PAIN LEVEL 6-10 Ondansetron HCl 4 mg 07/18/17 05:46 Zofran Injection IVPUSH Q8H PRN NAUSEA AND/OR VOMITING Pantoprazole Sodium 20 mg 07/18/17 10:00 07/19/17 10:50 Protonix Iv IVPUSH 20 mg DAILY PAOLO Administration Assessment: 42 year old female with no significant PMH admitted with abdominal pain. Plan: 1. Acute cholecystitis - MRCP shows no choledocholithiasis, acute vs chronic GB thickening with cholelithiasis - Will need cholecystectomy - Continue levaquin/ flagyl (day 2) - Continue IVF - NPO - Surgery following 2. DVT - SCDS Visit type - Emergency Visit Emergency Visit: Yes ED Registration Date: 07/18/17 Care time: The patient presented to the Emergency Department on the above date and was hospitalized for further evaluation of their emergent condition. - New Patient This patient is new to me today: Yes Date on this admission: 07/19/17 - Critical Care Critical Care patient: No
[2017-07-19] MEDS: LEVOFLOXACIN 500 MG IVPB 100 ML IVPB SCH (14:11)
[2017-07-19] MEDS: SODIUM CHLORIDE 1,000 ML IV SCH (14:11)
[2017-07-20] MEDS: METRONIDAZOLE 500 MG PREMIXED 100 ML IVPB SCH ×3 (01:20→17:56)
[2017-07-20] MEDS: SODIUM CHLORIDE 1,000 ML IV SCH ×2 (01:21→08:18)
[2017-07-20 07:57] LABS: BASOPHIL 0.4 % (0-2.0); EOSINOPHIL 0.7 % (0-4.5); MCH 27.8 pg (25.7-33.7); MCHC 34.2 g/dl (32.0-36.0); MEAN CELL VOLUME 81.4 fl (80-96); MEAN PLT VOLUME 9.9 fl (7.5-11.1); NEUTROPHILS 56.6 % (42.8-82.8); PLATELET COUNT 206 K/MM3 (134-434); RDW 13.6 % (11.6-15.6); WHITE BLOOD COUNT 8.1 K/mm3 (4.0-10.0)
[2017-07-20 08:30] LABS: ALBUMIN 3.3 g/dl (3.4-5.0); ANION GAP 12 (8-16); CALCIUM 7.6 mg/dL (8.5-10.1); CO2 21 mmol/L (21-32); GLUCOSE,RANDOM 60 mg/dL (74-106); MAGNESIUM 2.1 mg/dL (1.8-2.4)
[2017-07-20 09:03] LABS: ALK PHOS 72 U/L (45-117); CREATININE 0.5 mg/dL (0.55-1.02); PHOSPHOROUS 2.2 mg/dL (2.5-4.9); SGOT/AST 21 U/L (15-37); SGPT/ALT 36 U/L (12-78); TOT PROT 6.6 g/dl (6.4-8.2)
[2017-07-20 10:46] LABS: BILIRUBIN,TOTAL 0.5 mg/dL (0.2-1.0)
[2017-07-20] MEDS: PANTOPRAZOLE SODIUM 40 MG VIAL IVPUSH SCH (11:15)
[2017-07-20] MEDS: LEVOFLOXACIN 500 MG IVPB 100 ML IVPB SCH (11:26)
--- NOTE | 2017-07-20 11:42 | PN ---
Physical Exam: SUBJECTIVE: Patient seen and examined. She has mild pain to her RUQ which refers to her R shoulder/back, however it is not worse. She is ready for her surgery OBJECTIVE: Vital Signs Period Temp Pulse Resp BP Sys/Crowell Pulse Ox Last 24 Hr 98.1 F-98.8 F 55-76 16-58 95-116/47-76 PE Neuro: alert, awake, cn 2-12intact Pulm: CTAB CV: s1 s2 rrr no mrg Abd: RUQ tenderness mildly referring to R shoulder abd soft, no distention Ext: no le edema Laboratory Results - last 24 hr 07/20/17 07/20/17 06:30 06:30 WBC 8.1 RBC 4.29 Hgb 11.9 Hct 34.9 MCV 81.4 MCH 27.8 MCHC 34.2 RDW 13.6 Plt Count 206 MPV 9.9 Neutrophils % 56.6 Lymphocytes % 36.3 Monocytes % 6.0 Eosinophils % 0.7 Basophils % 0.4 Sodium 140 Potassium 3.4 L Chloride 107 Carbon Dioxide 21 Anion Gap 12 BUN 7 Creatinine 0.5 L Creat Clearance w eGFR > 60 Random Glucose 60 L Calcium 7.6 L Phosphorus 2.2 L Magnesium 2.1 Total Bilirubin 0.5 D AST 21 ALT 36 Alkaline Phosphatase 72 Total Protein 6.6 Albumin 3.3 L Active Medications Generic Name Dose Route Start Last Admin Trade Name Freq PRN Reason Stop Dose Admin Sodium Chloride 1,000 mls @ 100 mls/hr 07/18/17 05:45 07/20/17 08:18 Normal Saline - IV Not Given ASDIR PAOLO Metronidazole 100 mls @ 100 mls/hr 07/18/17 05:44 07/20/17 11:15 Flagyl 500mg Premixed Ivpb - IVPB 100 mls/hr Q8H-IV PAOLO Administration Levofloxacin 100 mls @ 100 mls/hr 07/19/17 12:38 07/20/17 11:26 Levaquin 500 Mg Premixed Ivpb - IVPB 100 mls/hr DAILY PAOLO Administration Morphine Sulfate 2 mg 07/18/17 05:21 Morphine Injection - IVPUSH Q4H PRN PAIN LEVEL 6-10 Ondansetron HCl 4 mg 07/18/17 05:46 Zofran Injection IVPUSH Q8H PRN NAUSEA AND/OR VOMITING Pantoprazole Sodium 20 mg 07/18/17 10:00 07/20/17 11:15 Protonix Iv IVPUSH 20 mg DAILY PAOLO Administration Imaging: - MRCP shows no choledocholithiasis, acute vs chronic GB thickening with cholelithiasis Assessment: 42 year old female with no significant PMH admitted with abdominal pain. Plan: 1. Acute cholecystitis - For cholecystectomy today @12noon - Continue levaquin/ flagyl (day 3) - Continue IVF - NPO - Surgery following 2. DVT - SCDS Visit type - Emergency Visit Emergency Visit: Yes ED Registration Date: 07/18/17 Care time: The patient presented to the Emergency Department on the above date and was hospitalized for further evaluation of their emergent condition. - New Patient This patient is new to me today: No - Critical Care Critical Care patient: No
[2017-07-20] MEDS ORDERED: ONDANSETRON 4 MG/2 ML VIAL IVPUSH PRN ×3 (12:59→16:04)
[2017-07-20] MEDS ORDERED: PROMETHAZINE HCL 25 MG/1 ML VIAL IVPUSH PRN ×2 (12:59→14:44)
[2017-07-20] MEDS ORDERED: LACTATED RINGERS SOLUTION 1,000 ML IV SCH ×2 (13:00→14:45)
[2017-07-20] MEDS ORDERED: PROPOFOL 20 ML ONE (13:27)
[2017-07-20] MEDS ORDERED: MIDAZOLAM HCL 2 MG/2 ML SINGLE DOSE VIAL ONE (13:28)
[2017-07-20] MEDS ORDERED: ROCURONIUM BROMIDE 50 MG/5 ML VIAL ONE ×2 (13:28)
[2017-07-20] MEDS ORDERED: BUPIVACAINE HCL/PF 0.5% (5MG/ML) 10 ML VIAL ONE (13:53)
[2017-07-20] MEDS ORDERED: ceFAZolin SODIUM 1 GM VIAL IVPB ONE (14:03)
[2017-07-20] MEDS ORDERED: ePHEDrine SULFATE 50 MG/1 ML AMPULE ONE (14:04)
[2017-07-20] MEDS ORDERED: NEOSTIGMINE METHYLSULFATE 0.5 MG/ML - 10 ML MDV ONE (15:14)
[2017-07-20] MEDS ORDERED: BUPIVACAINE HCL/PF (5 MG/ML) 30 ML VIAL IJ ONE (15:17)
--- NOTE | 2017-07-20 15:35 | OP ---
Operative Note - Note: Operative Date: 07/20/17 Pre-Operative Diagnosis: acute and chronic cholecystitis Operation: laparoscopic cholecystectomy Findings: enlarged, somewhat edematous gallbladder full of large stones, critical view identified Post-Operative Diagnosis: Same as Pre-op Surgeon: Shilo Griffiths Telecommunications Engineer: Nicole Grey Anesthesiologist/POULTRY GRADER: Leandro Chang (w/Kyara) Anesthesia: General, Local (20ml 0.5% marcaine) Specimens Removed: gallbladder to pathology Estimated Blood Loss (mls): 5 Fluid Volume Replaced (mls): 1,700 (crystalloid) Operative Report Dictated: Yes
[2017-07-20] MEDS ORDERED: IBUPROFEN 600 MG TABLET (FP) PO PRN ×2 (15:39→16:04)
[2017-07-20] MEDS ORDERED: ACETAMINOPHEN 325 MG TABLET (FP) PO PRN ×2 (15:39→16:04)
[2017-07-20] MEDS ORDERED: oxyCODONE HCL 5 MG TABLET PO PRN ×2 (15:40→16:04)
[2017-07-20] MEDS ORDERED: morphine CARPU-JECT 8 MG/1 ML DISP.SYRIN IVPUSH PRN ×2 (15:41→16:04)
[2017-07-20] MEDS ORDERED: D5-1/2NS+20 MEQ KCL - 1,000 ML IV SCH ×2 (15:45→16:04)
[2017-07-20] MEDS: DOCUSATE SODIUM 100 MG CAPSULE (FP) PO SCH (21:00)
[2017-07-20] MEDS ORDERED: DOCUSATE SODIUM 100 MG CAPSULE (FP) PO SCH (22:00)
[2017-07-21] MEDS: METRONIDAZOLE 500 MG PREMIXED 100 ML IVPB SCH ×2 (01:05→10:56)
[2017-07-21 07:44] LABS: BASOPHIL 0.2 % (0-2.0); MCH 27.7 pg (25.7-33.7); MCHC 33.9 g/dl (32.0-36.0); MEAN CELL VOLUME 81.8 fl (80-96); NEUTROPHILS 82.2 % (42.8-82.8); PLATELET COUNT 220 K/MM3 (134-434); RDW 13.9 % (11.6-15.6)
[2017-07-21 08:14] LABS: ALBUMIN 3.3 g/dl (3.4-5.0); ANION GAP 10 (8-16); CALCIUM 8.1 mg/dL (8.5-10.1); CO2 20 mmol/L (21-32); GLUCOSE,RANDOM 178 mg/dL (74-106); MAGNESIUM 2.2 mg/dL (1.8-2.4); PHOSPHOROUS 1.7 mg/dL (2.5-4.9); SGOT/AST 48 U/L (15-37); SGPT/ALT 44 U/L (12-78)
[2017-07-21 08:16] LABS: ALK PHOS 70 U/L (45-117); BILIRUBIN,TOTAL 0.7 mg/dL (0.2-1.0); CREATININE 0.6 mg/dL (0.55-1.02); TOT PROT 6.4 g/dl (6.4-8.2)
[2017-07-21] MEDS ORDERED: PANTOPRAZOLE SODIUM 40 MG VIAL IVPUSH SCH (10:00)
[2017-07-21] MEDS ORDERED: LEVOFLOXACIN 500 MG IVPB 100 ML IVPB SCH (10:00)
[2017-07-21] MEDS: DOCUSATE SODIUM 100 MG CAPSULE (FP) PO SCH (10:55)
--- NOTE | 2017-07-21 11:34 | PN ---
Progress Note (short form) - Note Progress Note: Anesthesia post op note POD#1. S/P Lap cholecystectomy. Pat seen and examined. VSS. No apparent post anesthesia complications.Signed off.
--- NOTE | 2017-07-21 13:15 | PN ---
Progress Note, Physician Chief Complaint: RUQ pain History of Present Illness: s/p agustin akhtar yesterday feeling better had some dizziness with ambulation, pain controlled with tylenol and ibuprofen no bm yet, tolerating some po, kitchen sent heavy meals, which made her slightly nauseated - better with some gilberto natasha voiding clear umbilical site most uncomfortable last antibiotic going now - Current Medication List Current Medications: Active Medications Acetaminophen (Tylenol -) 650 mg PO Q6H PRN PRN Reason: PAIN Last Admin: 07/20/17 20:57 Dose: 650 mg Docusate Sodium (Colace -) 100 mg PO BID [facility] Last Admin: 07/21/17 10:55 Dose: 100 mg Potassium Chloride/Dextrose/Sod Cl (D5-1/2ns+20 Meq Kcl -) 1,000 mls @ 100 mls/ hr IV ASDIR [facility] Last Admin: 07/20/17 17:06 Dose: 0 mls Ibuprofen (Motrin -) 600 mg PO Q6H PRN PRN Reason: PAIN Last Admin: 07/21/17 01:04 Dose: 600 mg Morphine Sulfate (Morphine Sulfate) 2 mg IVPUSH Q3H PRN PRN Reason: SEVERE PAIN Ondansetron HCl (Zofran Injection) 4 mg IVPUSH Q8H PRN PRN Reason: NAUSEA AND/OR VOMITING Oxycodone HCl (Roxicodone -) 5 mg PO Q6H PRN PRN Reason: SEVERE PAIN Pantoprazole Sodium (Protonix Iv) 20 mg IVPUSH DAILY [facility] Last Admin: 07/21/17 10:55 Dose: 20 mg - Objective Vital Signs: Vital Signs Temperature 99.1 F 07/21/17 09:00 Pulse Rate 54 L 07/21/17 09:00 Respiratory Rate 16 07/21/17 09:00 Blood Pressure 115/74 07/21/17 09:00 O2 Sat by Pulse Oximetry (%) 96 07/21/17 09:00 Vital Signs Period Temp Pulse Resp BP Sys/Crowell Pulse Ox Last 24 Hr 98.0 F-99.3 F 52-100 16-18 99-122/54-74 96-100 Constitutional: Yes: Well Nourished, No Distress, Calm Eyes: Yes: Conjunctiva Clear, EOM Intact Gastrointestinal: Yes: Soft, Distention, Tenderness (incisional and mild lower quadrants, no R/G) Musculoskeletal: No: Joint Stiffness, Joint Swelling Extremities: No: Cool, Cyanosis Integumentary: Yes: Incision (x4 dressed). No: Jaundice, Rash Wound/Incision: Yes: Steri Strips (under dressings), Dressing Dry and Intact (x4 ). No: Dressing Removed Neurological: Yes: Alert, Oriented Labs: CBC, BMP 07/21/17 06:00 07/21/17 06:00 CMP Sodium 139 mmol/L (136-145) 07/21/17 06:00 Potassium 3.7 mmol/L (3.5-5.1) 07/21/17 06:00 Chloride 109 mmol/L (98-107) H 07/21/17 06:00 Carbon Dioxide 20 mmol/L (21-32) L 07/21/17 06:00 Anion Gap 10 (8-16) 07/21/17 06:00 BUN 6 mg/dL (7-18) L 07/21/17 06:00 Creatinine 0.6 mg/dL (0.55-1.02) 07/21/17 06:00 Creat Clearance w eGFR > 60 (>60) 07/21/17 06:00 POC Glucometer 73 UNITS (()) 07/20/17 12:59 Random Glucose 178 mg/dL (74-106) H D 07/21/17 06:00 Calcium 8.1 mg/dL (8.5-10.1) L 07/21/17 06:00 Phosphorus 1.7 mg/dL (2.5-4.9) L D 07/21/17 06:00 Magnesium 2.2 mg/dL (1.8-2.4) 07/21/17 06:00 Total Bilirubin 0.7 mg/dL (0.2-1.0) D 07/21/17 06:00 AST 48 U/L (15-37) H D 07/21/17 06:00 ALT 44 U/L (12-78) D 07/21/17 06:00 Alkaline Phosphatase 70 U/L (45-117) 07/21/17 06:00 Total Protein 6.4 g/dl (6.4-8.2) 07/21/17 06:00 Albumin 3.3 g/dl (3.4-5.0) L 07/21/17 06:00 Lipase 127 U/L (73-393) 07/19/17 06:00 Serum , Qual Negative 07/18/17 02:41 Problem List - Problems (1) Calculus of gallbladder with acute and chronic cholecystitis without obstruction Assessment/Plan: POD1 s/p laparoscopic cholecystectomy Has been OOB, changed clothes Voiding, tolerating po Pain managed with nonnarcotic po meds Stop antibiotics after current doses Incisions with dressings clean/dry/intact Appropriate postop tenderness Slightly dizzy - should improve throughout day Cautioned to take it slow when getting up and moving Will try to get rating officer fare for eating Ok for d/c home - instructions in d/c plan To f/u with me in 2 weeks in clinic Code(s): K80.12 - CALCULUS OF GB W ACUTE AND CHRONIC CHOLECYST W/O OBSTRUCTION
[2017-07-21 13:47] VITALS: BP 112/67; PULSE 62; TEMP 97.8
--- NOTE | 2017-07-21 16:23 | DS ---
Physical Exam: SUBJECTIVE: Patient seen and examined. She tolerated PO diet, feeling mildly dizzy, eager to go home. at bedside. OBJECTIVE: Vital Signs Period Temp Pulse Resp BP Sys/Crowell Pulse Ox Last 24 Hr 97.8 F-99.1 F 52-75 16-18 99-115/54-74 96-99 PE Neuro: alert, awake, cn 2-12intact Pulm: CTAB CV: s1 s2 rrr no mrg Abd: x4 incision CDI, mild abdominal distention and tenderness to umbilicial incision and epigastric Ext: no le edema Laboratory Results - last 24 hr 07/21/17 07/21/17 06:00 06:00 WBC 10.0 RBC 4.18 Hgb 11.6 Hct 34.2 MCV 81.8 MCH 27.7 MCHC 33.9 RDW 13.9 Plt Count 220 MPV 10.0 Neutrophils % 82.2 D Lymphocytes % 12.5 D Monocytes % 5.1 Eosinophils % 0.0 D Basophils % 0.2 Sodium 139 Potassium 3.7 Chloride 109 H Carbon Dioxide 20 L Anion Gap 10 BUN 6 L Creatinine 0.6 Creat Clearance w eGFR > 60 Random Glucose 178 H D Calcium 8.1 L Phosphorus 1.7 L D Magnesium 2.2 Total Bilirubin 0.7 D AST 48 H D ALT 44 D Alkaline Phosphatase 70 Total Protein 6.4 Albumin 3.3 L HOSPITAL COURSE: Date of Admission:07/18/17 Date of Discharge: 07/21/17 Minutes to complete discharge: 37 Discharge Summary Reason For Visit: CHOLELITHIASIS Current Active Problems Acute cholecystitis (Acute) Calculus of gallbladder with acute and chronic cholecystitis without obstruction (Acute) Cholelithiasis (Acute) Hospital Course: Initial Hospital Course: Briefly, this 42 Female with significant PMH presenting with abdominal pain for 1 day. The pain started after eating salad, is constant, 10/10, worst in the epigastric area and radiating to the RUQ, right flank, and right shoulder. It is accompanied by 4 episodes of NBNB emesis. she has had this pain ongoing for 2 years and never come to the hospital. Imaging: - MRCP shows no choledocholithiasis, acute vs chronic GB thickening with cholelithiasis Subsequent Hospital Course/Progress Note/Discharge Summary Assessment: 42 year old female with no significant PMH admitted with abdominal pain. Plan: 1. Acute cholecystitis - s/p cholecystectomy 07/20 - Completed levaquin (days 4)/ flagyl (days 2) - No abx on discharge - Tolerating PO diet, continue with light foods, no fat - Outpt follow up in 2 week, referral information enclosed - Tyelnol prn pain Dispo: - Home with outpt follow up - Pt and aware and agree w above plan Condition: Improved - Instructions Diet, Activity, Other Instructions: Please return to the ED for any new, persistent, or worsening symptoms. Follow up with your pcp in 1 week. Postoperative instructions: You had a laparoscopic cholecystectomy on 07/20/[address] Shilo Griffiths of [facility]. Activity: Resume your usual activities gradually, but no heavy exertion or lifting more than 10-15 pounds for 1 month. Remove dressings 48 hours after surgery; sticky tapes underneath will fall off by themselves. You may shower daily starting then, just pat the incision areas dry. No baths or swimming. Eat lightly at first, but advance to your usual diet as tolerated. Pain: For pain, you may use and alternate Tylenol (acetaminophen) and/or ibuprofen every 6 hours each as needed; this means that you can take one OR the other at 3-hour intervals. Do not take more than 4000mg of acetaminophen in a day. Take medications as prescribed or indicated on the labeling. Follow-up: Call Dr. Griffiths's office at [phone] to make your postop appointment (Sunday ~2 weeks after surgery). Clinic is held in the [facility] on the first floor of [facility]. Call the office if you have: * increasing pain not responsive to pain medication * fever of 101F or higher * vomiting * unusual or increasing bleeding or drainage from wounds * increasing redness or swelling at wound sites * inability to urinate Also, see your primary medical doctor within 1-2 weeks. Referrals: Shilo Griffiths MD [Staff Physician] - 2 Weeks Disposition: HOME - Home Medications Comprehensive Discharge Medication List: Ambulatory Orders Acetaminophen [Tylenol .Regular Strength -] 650 mg PO Q6H PRN #0 tablet Ibuprofen [Motrin -] 600 mg PO Q6H PRN #0 tablet 07/21/17 This patient is new to me today: No Emergency Visit: Yes ED Registration Date: 07/18/17 Care time: The patient presented to the Emergency Department on the above date and was hospitalized for further evaluation of their emergent condition. Critical Care patient: No - Discharge Referral Referred to [facility] No
--- NOTE | 2017-07-24 16:55 | PATH ---
Surgical Pathology Report Patient Name: EARNEST BOOGIE Med. Rec. #: [id number] /Age/Gender: 1975 (Age: 42) / F Account: [id number] Location: [facility] MED/SURG Taken: 07/20/2017 Received: 07/23/2017 Reported: 07/24/2017 Physicians: Shilo Griffiths M.D. Specimen(s) Received GALLBLADDER Clinical History Acute and chronic cholecystitis Final Diagnosis GALLBLADDER, LAPAROSCOPIC CHOLECYSTECTOMY: ACUTE AND CHRONIC CHOLECYSTITIS AND CHOLELITHIASIS. Electronically Signed La Wheat M.D. Gross Description Received in formalin, labeled "gallbladder," is a 10.5 x 3.2 x 2.8 cm. gallbladder with a 0.2 cm. in length portion of cystic duct attached. The outer surface is rebollar green and varies from smooth to shaggy. The lumen contains green, tenacious bile as well as multiple brown, irregular choleliths averaging 2.0 cm in greatest dimension. The mucosa is green and focally eroded. The wall of the gallbladder averages 0.2 cm. in thickness. Press Writer sections are submitted in one cassette. 07/23/201707/23/2017
== END 2017-07-21 18:26 | disposition home or self-care (01) | DRG 263 ==
LOC: JER 00:55 → JERBED 04:07 → J7W 14:30
PROVIDERS: ADMIT Internal Medicine; ATTEND Nurse Practitioner Acute Care
PROC: 0FT44ZZ Resection of Gallbladder, Percutaneous Endoscopic Approach (ICD-10-PCS; principal; 2017-07-20 12:00)
DX: K80.12 Calculus of gallbladder with acute and chronic cholecystitis without obstruction (principal)
CPT/HCPCS: 36415; 71010-TC; 74181-TC; 76705-TC; 80053; 81003; 83690; 83735; 84100; 84703; 85025; 85610; 86850; 86900; 86901; 88304-TC; 93005; 93010; 94010; 94760; 99283-25

== ENCOUNTER 2017-07-21 20:47 | Emergency (ER) | payer OTHER ==
--- NOTE | 2017-07-21 21:39 | PDOC ---
History of Present Illness <Nir Odonnell - Last Filed: 07/22/17 00:13> - General History Source: Patient, Parent(s) Exam Limitations: No Limitations - History of Present Illness Initial Comments: 07/21/17 21:57 The patient is a 42 year old female, with a significant past medical history of gallstones(s/p Cholecystectomy on 07/20/17) who presents to the emergency department s/p Cholecystectomy with nausea, lightheadedness, shortness of breath , and palpitations after being discharged from the hospital earlier this afternoon. Just prior to discharge earlier today, patient reports she developed nausea and dizziness. Patient reports she was told her symptoms were normal after her surgery. After returning home, patient reports she became short of breath and developed palpitations. Patient denies any associated chest pain, diaphoresis, lower extremity edema, or calf tenderness. Patient reports her lightheadedness is exacerbated when walking. As per , during EMS transport patients systolic was in the 130s. Patient denies any fever, chills , or headache. She denies any abdominal pain, vomiting, diarrhea, or constipation. She denies any dysuria, hematuria, frequency, or urgency, Allergies: NKDA Past Surgical History: Cholecystectomy Social History: Non smoker. No ETOH or recreational drug use. Surgeon: Dr. Griffiths <Jeanie Becerra - Last Filed: 07/22/17 00:16> - General Stated Complaint: INFECTION Time Seen by Provider: 07/21/17 21:04 Past History - Suicide/Smoking/Psychosocial Hx Smoking History: Never smoked Have you smoked in the past 12 months: No Hx Alcohol Use: No Drug/Substance Use Hx: No Substance Use Type: None <Nir Odonnell - Last Filed: 07/22/17 00:13> <Jeanie Becerra - Last Filed: 07/22/17 00:16> - Past Medical History Allergies/Adverse Reactions: Allergies Allergy/AdvReac Type Severity Reaction Status Date / Time No Known Allergies Allergy Verified 07/21/17 21:45 Home Medications: Ambulatory Orders Acetaminophen [Tylenol .Regular Strength -] 650 mg PO Q6H PRN #0 tablet Ibuprofen [Motrin -] 600 mg PO Q6H PRN #0 tablet 07/21/17 Review of Systems - Review of Systems Able to Perform ROS?: Yes Comments:: 07/21/17 21:57 CONSTITUTIONAL: No fever, no chills, no fatigue EYES: No visual changes ENT: No ear pain, no sore throat CARDIOVASCULAR: Yes palpitations. No chest pain. RESPIRATORY: Yes SOB. No cough. GI: Yes nausea. No abdominal pain, no vomiting, no constipation, no diarrhea GENITOURINARY: No dysuria, no frequency, no hematuria MUSCULOSKELETAL: No back pain, no joint pain, no myalgias SKIN: No rash NEURO: Yes dizziness, lightheadedness. No headache <Jeanie Becerra - Last Filed: 07/22/17 00:16> *Physical Exam - Vital Signs Last Vital Signs Temp Pulse Resp BP Pulse Ox 99.3 F 68 20 126/96 98 07/21/17 21:45 07/21/17 21:45 07/21/17 21:45 07/21/17 21:45 07/21/17 21:45 - Physical Exam Comments: 07/22/17 00:16 CONSTITUTIONAL: Well-appearing; well-nourished; in no apparent distress HEAD: Normocephalic; atraumatic EYES: PERRL; EOM intact ENMT: External appears normal; normal oropharynx NECK: Supple; non-tender; no cervical lymphadenopathy CARD: Normal S1, S2; no murmurs, rubs, or gallops RESP: Normal chest excursion with respiration; breath sounds clear and equal bilaterally; no wheezes, rhonchi, or rales ABD: Soft, non-distended; non-tender; no palpable organomegaly, no palpable hernias EXT: Normal ROM in all four extremities; non-tender to palpation; distal pulses intact SKIN: Several abdominal laparoscopic incision sites that are well appearing without erythema m discharge, or tenderness. Otherwise warm, dry, no rash NEURO: No focal neurological deficiencies. <Jeanie Becerra - Last Filed: 07/22/17 00:16> ED Treatment Course - LABORATORY CBC & Chemistry Diagram: 07/21/17 23:21 07/21/17 23:21 <Nir Odonnell - Last Filed: 07/22/17 00:13> - LABORATORY CBC & Chemistry Diagram: 07/21/17 23:21 07/21/17 23:21 <Jeanie Becerra - Last Filed: 07/22/17 00:16> Medical Decision Making - Medical Decision Making 07/22/17 00:13 42-year-old female, one day status post laparoscopic cholecystectomy for acute cholecystitis presents to the ER with dizziness, palpitations and intermittent shortness of breath that occurred shortly after discharge. Patient denies fever/ chills/nausea/vomiting/diarrhea/melena/bright red blood per rectum. In the ER, patient is awake and alert, afebrile rectally, with normal stable vital signs. I do not suspect a postoperative infection at this time. Will obtain UA; Will Rule out PE with CTA. Will reassess. <Nir Odonnell - Last Filed: 07/22/17 00:13> *DC/Admit/Observation/Transfer - Attestations Physician Attestion: 07/22/17 00:13 The documentation was prepared by the scribe under my direct supervision. I have reviewed the documentation which correctly represents the findings, medical decision-making and critical action taken by me. <Nir Odonnell - Last Filed: 07/22/17 00:13> - Attestations Scribe Attestion: 07/21/17 21:57 Documentation prepared by Jeanie Becerra, acting as district medical examiner for Nir Odonnell MD. <Jeanie Becerra - Last Filed: 07/22/17 00:16>
[2017-07-21 21:47] VITALS: TEMP 99.3; BMI 28.3
[2017-07-21 23:26] LABS: BASOPHIL 0.6 % (0-2.0); MCH 27.5 pg (25.7-33.7); MCHC 33.6 g/dl (32.0-36.0); MEAN CELL VOLUME 81.8 fl (80-96); MEAN PLT VOLUME 9.4 fl (7.5-11.1); NEUTROPHILS 72.6 % (42.8-82.8); PLATELET COUNT 209 K/MM3 (134-434); RDW 13.7 % (11.6-15.6); WHITE BLOOD COUNT 12.6 K/mm3 (4.0-10.0)
[2017-07-21 23:39] LABS: INR 1.42 (0.82-1.09)
[2017-07-21 23:50] LABS: ALBUMIN 3.4 g/dl (3.4-5.0); ALK PHOS 68 U/L (45-117); ANION GAP 8 (8-16); BILIRUBIN,TOTAL 0.5 mg/dL (0.2-1.0); CALCIUM 7.8 mg/dL (8.5-10.1); CO2 22 mmol/L (21-32); CREATININE 0.7 mg/dL (0.55-1.02); GLUCOSE,RANDOM 115 mg/dL (74-106); SGOT/AST 36 U/L (15-37); SGPT/ALT 44 U/L (12-78); TOT PROT 6.7 g/dl (6.4-8.2)
[2017-07-22 00:46] LABS: URINE APPEARANCE CLEAR; URINE BILIRUBIN NEGATIVE (NEGATIVE); URINE BLOOD NEGATIVE (NEGATIVE); URINE COLOR LTYELLOW; URINE GLUCOSE (UA) NEGATIVE (NEGATIVE); URINE KETONE 1+ (NEGATIVE); URINE NITRITE NEGATIVE (NEGATIVE); URINE PROTEIN NEGATIVE (NEGATIVE); URINE UROBILINOGEN NEGATIVE mg/dL (0.2-1.0)
[2017-07-22 05:38] VITALS: BP 112/63; PULSE 57
--- NOTE | 2017-07-22 06:51 | PDOC ---
*Physical Exam - Vital Signs Last Vital Signs Temp Pulse Resp BP Pulse Ox 99.3 F 57 L 18 112/63 96 07/21/17 21:45 07/22/17 05:37 07/22/17 05:37 07/22/17 05:37 07/22/17 05:37 ED Treatment Course - LABORATORY CBC & Chemistry Diagram: 07/21/17 23:21 07/21/17 23:21 - ADDITIONAL ORDERS Additional order review: Laboratory Results 07/22/17 07/21/17 07/21/17 00:37 23:21 23:21 PT with INR 16.00 H INR 1.42 H D Sodium 142 Potassium 3.4 L Chloride 112 H Carbon Dioxide 22 Anion Gap 8 BUN 6 L Creatinine 0.7 Creat Clearance w eGFR > 60 Random Glucose 115 H D Calcium 7.8 L Total Bilirubin 0.5 D AST 36 D ALT 44 Alkaline Phosphatase 68 Total Protein 6.7 Albumin 3.4 Urine Color Ltyellow Urine Appearance Clear Urine pH 6.0 Urine Protein Negative Urine Glucose (UA) Negative Urine Ketones 1+ H Urine Blood Negative Urine Nitrite Negative Urine Bilirubin Negative Urine Urobilinogen Negative 07/21/17 23:21 RBC 4.37 MCV 81.8 MCHC 33.6 RDW 13.7 MPV 9.4 Neutrophils % 72.6 Lymphocytes % 22.4 D Monocytes % 4.4 Eosinophils % 0.0 Basophils % 0.6 Medical Decision Making - Medical Decision Making 07/22/17 06:22 Sign-out received from outgoing Emergency Physician Dr. Odonnell Pt interviewed and examined Ancillary studies reviewed Case discussed in detail with oncoming Emergency Physician including history, physical exam and ancillary studies. Vital Signs Temp Pulse Resp BP Pulse Ox 99.3 F 57 L 18 112/63 96 07/21/17 21:45 07/22/17 05:37 07/22/17 05:37 07/22/17 05:37 07/22/17 05:37 CBC, BMP 07/21/17 23:21 07/21/17 23:21 CMP Sodium 142 mmol/L (136-145) 07/21/17 23:21 Potassium 3.4 mmol/L (3.5-5.1) L 07/21/17 23:21 Chloride 112 mmol/L (98-107) H 07/21/17 23:21 Carbon Dioxide 22 mmol/L (21-32) 07/21/17 23:21 Anion Gap 8 (8-16) 07/21/17 23:21 BUN 6 mg/dL (7-18) L 07/21/17 23:21 Creatinine 0.7 mg/dL (0.55-1.02) 07/21/17 23:21 Creat Clearance w eGFR > 60 (>60) 07/21/17 23:21 Random Glucose 115 mg/dL (74-106) H D 07/21/17 23:21 Calcium 7.8 mg/dL (8.5-10.1) L 07/21/17 23:21 Total Bilirubin 0.5 mg/dL (0.2-1.0) D 07/21/17 23:21 AST 36 U/L (15-37) D 07/21/17 23:21 ALT 44 U/L (12-78) 07/21/17 23:21 Alkaline Phosphatase 68 U/L (45-117) 07/21/17 23:21 Total Protein 6.7 g/dl (6.4-8.2) 07/21/17 23:21 Albumin 3.4 g/dl (3.4-5.0) 07/21/17 23:21 Urine Test Results Urine Color Ltyellow 07/22/17 00:37 Urine Appearance Clear 07/22/17 00:37 Urine pH 6.0 (5.0-8.0) 07/22/17 00:37 Urine Protein Negative (NEGATIVE) 07/22/17 00:37 Urine Glucose (UA) Negative (NEGATIVE) 07/22/17 00:37 Urine Ketones 1+ (NEGATIVE) H 07/22/17 00:37 Urine Blood Negative (NEGATIVE) 07/22/17 00:37 Urine Nitrite Negative (NEGATIVE) 07/22/17 00:37 Urine Bilirubin Negative (NEGATIVE) 07/22/17 00:37 CT chest reviewed. No acute pathology. No PE or dissection. The patient has been given the results. She appears very much anxious. Stating that she can't sleep, and that she doesn't understand why feels tired after having the surgery, despite the fact that she was recently discharged. She is tolerating PO. The patient states that she still havs discomfort at her surgical scar sites. I have reassurred the patient and the pt's will take the patient home. I suspect that at this moment that no further workup needs to be pursued and I advised that the patient follows up as an outpatient with return precautions. I'll write a prescription for benadryl to assist with sleep. *DC/Admit/Observation/Transfer Diagnosis at time of Disposition: Palpitations - Discharge Dispostion Disposition: HOME Condition at time of disposition: Stable Admit: No - Prescriptions Prescriptions: Diphenhydramine HCl [Benadryl -] 25 mg PO Q8H PRN #10 capsule PRN Reason: Itching/Sleep - Patient Instructions Printed Discharge Instructions: DI for Cholecystectomy Additional Instructions: Please drink plenty of fluids and rest. Follow up with your doctor. Call to schedule an appointment. Print Language: PASHTO
[2017-07-22] MEDS ORDERED: KETOROLAC TROMETHAMINE 30 MG/1 ML VIAL IVPUSH ONE (07:12)
[2017-07-22] MEDS ORDERED: KETOROLAC TROMETHAMINE 30 MG/1 ML VIAL ONE (07:13)
--- NOTE | 2017-07-22 09:06 | EKG ---
Test Reason : Blood Pressure : / mmHG Vent. Rate : 059 BPM Atrial Rate : 059 BPM P-R Int : 120 ms QRS Dur : 066 ms QT Int : 424 ms P-R-T Axes : 010 018 022 degrees QTc Int : 419 ms POOR DATA QUALITY, INTERPRETATION MAY BE ADVERSELY AFFECTED SINUS BRADYCARDIA OTHERWISE NORMAL ECG WHEN COMPARED WITH ECG OF 18-JUL-2017 03:05, NO SIGNIFICANT CHANGE WAS FOUND Confirmed by MANOJ LINARES, WINNIE ([id number]) on 07/22/2017 9:06:43 AM Referred By: Confirmed By:WINNIE ARANDA MD
[2017-07-22 15:05] LABS: URINE LEUK ESTERASE Negative (NEGATIVE)
== END 2017-07-22 07:19 | disposition home or self-care (01) ==
LOC: JER 20:47
PROC: 3E033GC Introduction of Other Therapeutic Substance into Peripheral Vein, Percutaneous Approach (ICD-10-PCS; principal; 2017-07-21)
DX: R00.2 Palpitations (principal); Z98.890 Other specified postprocedural states; Z90.49 Acquired absence of other specified parts of digestive tract
CPT/HCPCS: 36415; 71010-TC; 71275-TC; 80053; 81003; 85025; 85610; 87086; 93005; 93010; 96374; 99284-25

== ENCOUNTER 2021-04-05 17:25 | Emergency (ER) | payer OTHER ==
[2021-04-05 17:36] VITALS: TEMP 98; BMI 27.8
[2021-04-05] MEDS ORDERED: ACETAMINOPHEN 325 MG TABLET (FP) PO ONE (20:03)
[2021-04-05] MEDS ORDERED: ACETAMINOPHEN 325 MG TABLET (FP) ONE (20:10)
[2021-04-05 21:05] LABS: BASO % 0.5 % (0-2.0); EOS % 0.5 % (0-4.5); HEMATOCRIT 40.6 % (32.4-45.2); HEMOGLOBIN 13.3 GM/dL (10.7-15.3); LYMPH % 38.9 % (8-40); MCH 25.1 pg (25.7-33.7); MCHC 32.8 g/dl (32.0-36.0); MEAN CELL VOLUME 76.5 fl (80-96); MEAN PLT VOLUME 9.5 fl (7.5-11.1); MONO % 6.2 % (3.8-10.2); NEUT % 53.9 % (42.8-82.8); PLATELET COUNT 221 10^3/uL (134-434); RBC 5.31 M/mm3 (3.60-5.2); RDW 18.2 % (11.6-15.6); WHITE BLOOD COUNT 8.2 K/mm3 (4.0-10.0)
[2021-04-05 21:12] LABS: INR 1.08 (0.83-1.09); PROTHROMBIN TIME (PATIENT) 13.3 SEC (9.7-13.0)
[2021-04-05 21:14] LABS: ACTIVATED PTT 34.7 SECONDS (25.2-36.5)
[2021-04-05 21:15] LABS: CHLORIDE 105 mmol/L (98-107); SODIUM 140 mmol/L (136-145)
[2021-04-05 21:16] LABS: CALCIUM 9.2 mg/dL (8.5-10.1)
[2021-04-05 21:17] LABS: ALBUMIN 4.4 g/dl (3.4-5.0); ANION GAP 6 MMOL/L (8-16); BLOOD UREA NITROGEN 9.6 mg/dL (7-18); CO2 29 mmol/L (21-32); GLUCOSE,RANDOM 83 mg/dL (74-106); MAGNESIUM 2.5 mg/dL (1.8-2.4)
[2021-04-05 21:20] LABS: CREATININE 0.7 mg/dL (0.55-1.3); SGOT/AST 14 U/L (15-37); SGPT/ALT 25 U/L (13-61)
[2021-04-05 21:21] LABS: BILIRUBIN,TOTAL 0.4 mg/dL (0.2-1); TOT PROT 8.7 g/dl (6.4-8.2)
[2021-04-05 21:22] LABS: ALK PHOS 97 U/L (45-117)
[2021-04-05 23:11] VITALS: BP 140/74; PULSE 78
== END 2021-04-05 23:12 | disposition home or self-care (01) ==
LOC: JER 17:25
DX: R00.2 Palpitations (principal); R07.9 Chest pain, unspecified
CPT/HCPCS: 36415; 71046-TC-FY; 80053; 82550; 83735; 84443; 84484; 84703; 85025; 85610; 85730; 93005; 93010; 99285-25

== ENCOUNTER 2023-01-19 00:42 | Emergency (ER) | payer OTHER ==
[2023-01-19 00:53] VITALS: BP 152/78; PULSE 92; RESP 18; TEMP 98.3; BMI 28.9
[2023-01-19] MEDS ORDERED: DIPHTH,PERTUSS(ACELL),TET 0.5 ML DISP.SYRIN IM ONE ×2 (02:17→02:39)
[2023-01-19] MEDS ORDERED: LIDOCAINE HCL 1%, 10 MG/ML (10ML VIAL) MDV ONE (02:33)
[2023-01-19] MEDS ORDERED: ACETAMINOPHEN 325 MG TABLET (FP) ONE (03:07)
[2023-01-19] MEDS ORDERED: ACETAMINOPHEN 500 MG TABLET (FP) PO ONE (03:21)
== END 2023-01-19 03:29 | disposition home or self-care (01) ==
LOC: JER 00:42
PROC: 0HQKXZZ Repair Right Lower Leg Skin, External Approach (ICD-10-PCS; principal; 2023-01-19)
PROC: 3E0234Z Introduction of Serum, Toxoid and Vaccine into Muscle, Percutaneous Approach (ICD-10-PCS; 2023-01-19)
DX: S81.811A Laceration without foreign body, right lower leg, initial encounter (principal); W25.XXXA Contact with sharp glass, initial encounter
CPT/HCPCS: 12001-25; 73590-TC-RT-FY; 90471; 90715; 99283-25

== ENCOUNTER 2023-01-25 20:00 | Emergency (ER) | payer OTHER ==
[2023-01-25 20:05] VITALS: BP 128/81; PULSE 55; RESP 18; TEMP 98; BMI 27.3
== END 2023-01-25 20:28 | disposition home or self-care (01) ==
LOC: JERFT 20:00
DX: Z48.02 Encounter for removal of sutures (principal)
CPT/HCPCS: 99281-25

== ENCOUNTER 2023-08-19 23:02 | Observation (INO) | payer OTHER ==
[2023-08-19 23:11] VITALS: BMI 27.1
[2023-08-20] MEDS ORDERED: METOCLOPRAMIDE HCL INJECTION 10 MG/2 ML VIAL IVPB ONE (00:31)
[2023-08-20] MEDS ORDERED: SODIUM CHLORIDE 0.9% 1000 ML INFUS.BAG IV ONE (00:32)
[2023-08-20] MEDS ORDERED: ACETAMINOPHEN 1000 MG/100 ML BAG IVPB ONE (00:32)
[2023-08-20] MEDS ORDERED: ACETAMINOPHEN INJECTION 100 ML IVPB ONE (00:51)
[2023-08-20] MEDS ORDERED: METOCLOPRAMIDE HCL INJECTION 10 MG/2 ML VIAL ONE (00:51)
[2023-08-20 01:44] LABS: BASO % 0.2 % (0-2.0); EOS % 0.3 % (0-4.5); HEMATOCRIT 45.5 % (32.4-45.2); HEMOGLOBIN 15.5 GM/dL (10.7-15.3); LYMPH % 24.7 % (8-40); MCH 27.9 pg (25.7-33.7); MCHC 34.1 g/dl (32.0-36.0); MEAN CELL VOLUME 81.8 fl (80-96); MONO % 9.5 % (3.8-10.2); NEUT % 65.3 % (42.8-82.8); PLATELET COUNT 253 10^3/uL (134-434); RBC 5.56 M/mm3 (3.60-5.2); RDW 13.1 % (11.6-15.6); WHITE BLOOD COUNT 6.9 K/mm3 (4.0-10.0)
[2023-08-20 01:48] LABS: EPI CELLS 36 /uL (0-25.1); HYALINE CASTS 16 /uL (0-3.1); PH,URINE 5.5 (5.0-8.0); URINE APPEARANCE CLEAR; URINE BACTERIA 111 /uL (0-1359); URINE BILIRUBIN NEGATIVE (NEGATIVE); URINE COLOR DK YELLOW; URINE GLUCOSE (UA) NEGATIVE (NEGATIVE); URINE KETONE TRACE (NEGATIVE); URINE LEUK ESTERASE 1+ (NEGATIVE); URINE NITRITE NEGATIVE (NEGATIVE); URINE PROTEIN TRACE (NEGATIVE); URINE WBC 94 /uL (0-25.8)
[2023-08-20 02:02] LABS: POTASSIUM 3.2 mmol/L (3.5-5.1)
[2023-08-20 02:04] LABS: CALCIUM 9.1 mg/dL (8.5-10.1)
[2023-08-20 02:05] LABS: ALBUMIN 3.9 g/dl (3.4-5.0); BLOOD UREA NITROGEN 11.2 mg/dL (7-18); MAGNESIUM 2.2 mg/dL (1.8-2.4)
[2023-08-20 02:08] LABS: CREATININE 0.9 mg/dL (0.55-1.3)
[2023-08-20 02:10] LABS: BILIRUBIN,TOTAL 0.6 mg/dL (0.2-1)
[2023-08-20] MEDS ORDERED: POTASSIUM CHLORIDE ORAL LIQUID 20 MEQ/15 ML PO ONE (02:32)
[2023-08-20] MEDS ORDERED: AMOX TR/POT CLAV 875MG/125MG TABLETS (FP) PO ONE (02:39)
[2023-08-20] MEDS ORDERED: POTASSIUM CHLORIDE ORAL LIQUID 20 MEQ/15 ML ONE (02:45)
[2023-08-20] MEDS ORDERED: SODIUM CHLORIDE 0.9% 500 ML INFUS.BAG IV ONE (02:48)
[2023-08-20] MEDS ORDERED: POTASSIUM CHLORIDE TABS 20 MEQ TABLET.ER (FP) PO ONE (02:52)
[2023-08-20] MEDS ORDERED: MAGNESIUM SULF 50% (8.12 MEQ/2 ML-1 GM VIAL) IVPB ONE (02:52)
[2023-08-20] MEDS ORDERED: AMOX TR/POT CLAV 875MG/125MG TABLETS (FP) ONE (03:28)
[2023-08-20] MEDS ORDERED: MAGNESIUM SULFATE IN WATER 2 GM/50 ML IVPB IVPB ONE (03:28)
[2023-08-20] MEDS ORDERED: ONDANSETRON 4 MG/2 ML VIAL IVPUSH ONE (05:17)
[2023-08-20] MEDS ORDERED: ONDANSETRON 4 MG/2 ML VIAL ONE (05:23)
[2023-08-20 07:26] LABS: URINE RBC 24.8 /uL (0-23.9)
[2023-08-20] MEDS ORDERED: ONDANSETRON 4 MG/2 ML VIAL IVPUSH PRN (09:05)
[2023-08-20] MEDS ORDERED: ACETAMINOPHEN 325 MG TABLET (FP) PO PRN ×2 (09:05→09:09)
[2023-08-20] MEDS ORDERED: ENOXAPARIN NA (PORCINE) 40 MG/0.4 ML DISP.SYRIN SQ ONE (09:33)
[2023-08-20] MEDS: SODIUM CHLORIDE 1,000 ML IV SCH (10:15)
[2023-08-20] MEDS ORDERED: INSULIN SLIDING SCALE (NOVOLOG) 1 VIAL SQ SCH (11:00)
[2023-08-20] MEDS: ENOXAPARIN NA (PORCINE) 40 MG/0.4 ML DISP.SYRIN SQ SCH (11:00)
[2023-08-20] MEDS: CEFTRIAXONE 1 GM in DEXTROSE 5%-WATER - 100 ML IVPB SCH (11:00)
[2023-08-20] MEDS ORDERED: CEFTRIAXONE 1 GM/50 ML BAG ONE (11:06)
[2023-08-20] MEDS: FENOFIBRIC ACID 45 MG CAP PO SCH (12:28)
[2023-08-20] MEDS: LACTOBACILLUS ACIDOPHILUS 1 TABLET PO SCH (22:40)
[2023-08-21 08:48] LABS: BASO % 0.4 % (0-2.0); EOS % 1.6 % (0-4.5); HEMATOCRIT 37.7 % (32.4-45.2); HEMOGLOBIN 12.9 GM/dL (10.7-15.3); LYMPH % 43.6 % (8-40); MCH 28.2 pg (25.7-33.7); MCHC 34.3 g/dl (32.0-36.0); MEAN CELL VOLUME 82.4 fl (80-96); MEAN PLT VOLUME 8.9 fl (7.5-11.1); MONO % 13.1 % (3.8-10.2); NEUT % 41.3 % (42.8-82.8); PLATELET COUNT 219 10^3/uL (134-434); RBC 4.58 M/mm3 (3.60-5.2); RDW 13.3 % (11.6-15.6); WHITE BLOOD COUNT 5.5 K/mm3 (4.0-10.0)
[2023-08-21 08:51] LABS: POTASSIUM 3.4 mmol/L (3.5-5.1)
[2023-08-21 08:56] LABS: CALCIUM 8.1 mg/dL (8.5-10.1)
[2023-08-21 08:57] LABS: BLOOD UREA NITROGEN 4.6 mg/dL (7-18); MAGNESIUM 2.1 mg/dL (1.8-2.4)
[2023-08-21 08:59] LABS: CREATININE 0.6 mg/dL (0.55-1.3)
[2023-08-21 09:00] LABS: PHOSPHOROUS 3.3 mg/dL (2.5-4.9)
[2023-08-21 09:01] LABS: BILIRUBIN,TOTAL 0.6 mg/dL (0.2-1); TOT PROT 6.5 g/dl (6.4-8.2)
[2023-08-21] MEDS: SODIUM CHLORIDE 1,000 ML IV SCH (10:39)
[2023-08-21] MEDS: ENOXAPARIN NA (PORCINE) 40 MG/0.4 ML DISP.SYRIN SQ SCH (10:40)
[2023-08-21] MEDS: FENOFIBRIC ACID 45 MG CAP PO SCH (10:40)
[2023-08-21] MEDS ORDERED: POTASSIUM CHLORIDE ORAL LIQUID 20 MEQ/15 ML PO ONE (11:00)
[2023-08-21] MEDS: CEFTRIAXONE 1 GM in DEXTROSE 5%-WATER - 50 ML IVPB SCH (12:13)
[2023-08-21] MEDS: CEFTRIAXONE 1 GM in DEXTROSE 5%-WATER - 100 ML IVPB SCH (12:13)
[2023-08-21] MEDS: LACTOBACILLUS ACIDOPHILUS 1 TABLET PO SCH (21:58)
[2023-08-22 10:00] LABS: HEMATOCRIT 43.7 % (32.4-45.2); HEMOGLOBIN 14.3 GM/dL (10.7-15.3); MCH 27.6 pg (25.7-33.7); MCHC 32.7 g/dl (32.0-36.0); MEAN CELL VOLUME 84.2 fl (80-96); MEAN PLT VOLUME 8.7 fl (7.5-11.1); PLATELET COUNT 291 10^3/uL (134-434); RBC 5.18 M/mm3 (3.60-5.2); RDW 12.9 % (11.6-15.6); WHITE BLOOD COUNT 8.6 K/mm3 (4.0-10.0)
[2023-08-22 10:07] LABS: POTASSIUM 3.7 mmol/L (3.5-5.1)
[2023-08-22] MEDS: FENOFIBRIC ACID 45 MG CAP PO SCH (10:32)
[2023-08-22] MEDS: ENOXAPARIN NA (PORCINE) 40 MG/0.4 ML DISP.SYRIN SQ SCH (10:33)
[2023-08-22] MEDS: CEFTRIAXONE 1 GM in DEXTROSE 5%-WATER - 50 ML IVPB SCH (11:04)
[2023-08-22 11:09] LABS: CALCIUM 8.9 mg/dL (8.5-10.1)
[2023-08-22 11:10] LABS: ALBUMIN 3.6 g/dl (3.4-5.0); BLOOD UREA NITROGEN 7.2 mg/dL (7-18); MAGNESIUM 2.3 mg/dL (1.8-2.4)
[2023-08-22 11:13] LABS: CREATININE 0.7 mg/dL (0.55-1.3); PHOSPHOROUS 3.5 mg/dL (2.5-4.9)
[2023-08-22 11:14] LABS: TOT PROT 7.4 g/dl (6.4-8.2)
[2023-08-22 11:15] LABS: BILIRUBIN,TOTAL 0.4 mg/dL (0.2-1)
[2023-08-22 12:30] LABS: ANISOCYTOSIS 2+; MACROCYTOSIS 0; OVALOCYTE 2+
[2023-08-22 18:16] VITALS: BP 112/66; PULSE 68; RESP 18; TEMP 98.2
== END 2023-08-22 18:21 | disposition home or self-care (01) ==
LOC: JER 23:02 → JERBED 08-20 05:16 → J7W 08-20 21:32
PROVIDERS: ADMIT Internal Medicine; ATTEND Internal Medicine
PROC: 3E03329 Introduction of Other Anti-infective into Peripheral Vein, Percutaneous Approach (ICD-10-PCS; principal; 2023-08-20)
PROC: 3E023GC Introduction of Other Therapeutic Substance into Muscle, Percutaneous Approach (ICD-10-PCS; 2023-08-20)
PROC: 3E033NZ Introduction of Analgesics, Hypnotics, Sedatives into Peripheral Vein, Percutaneous Approach (ICD-10-PCS; 2023-08-20)
PROC: 3E033GC Introduction of Other Therapeutic Substance into Peripheral Vein, Percutaneous Approach (ICD-10-PCS; 2023-08-20)
PROC: 3E0337Z Introduction of Electrolytic and Water Balance Substance into Peripheral Vein, Percutaneous Approach (ICD-10-PCS; 2023-08-20)
DX: A09 Infectious gastroenteritis and colitis, unspecified (principal); I95.9 Hypotension, unspecified; E87.6 Hypokalemia; Z29.89 Encounter for other specified prophylactic measures; R73.03 Prediabetes; Z90.49 Acquired absence of other specified parts of digestive tract
CPT/HCPCS: 0241U-QW; 36415; 74177-TC; 80053; 80061; 81003; 82272; 82962; 83036; 83735; 84100; 84484; 84703; 85025; 87086; 87209; 87324; 87449; 93005; 93010; 96365; 96367; 96372; 96375; 99285-25; G0378; Q9967

== ENCOUNTER 2024-01-24 15:13 | Emergency (ER) | payer OTHER ==
[2024-01-24 15:17] VITALS: BP 117/69; PULSE 61; RESP 18; TEMP 98; BMI 26.9
== END 2024-01-24 15:59 | disposition home or self-care (01) ==
LOC: JERFT 15:13
DX: H11.31 Conjunctival hemorrhage, right eye (principal)
CPT/HCPCS: 99283-25